=== PATIENT | male | born 1960 | race Caucasian/White ===

== ENCOUNTER 2018-07-28 14:08 | Outpatient (REF) | payer BC, SELFPAY | END 2018-07-28 14:28 | LOC: NCHCN 14:08 | PROVIDERS: PCP Nurse Practitioner Family; Visit Provider Nurse Practitioner Family | DX: N52.9 Male erectile dysfunction, unspecified (principal) | CPT/HCPCS: 84153 ==

== ENCOUNTER 2018-08-22 14:14 | Outpatient (REF) | payer BC, SELFPAY ==
[2018-08-22 14:55] LABS: Anion Gap 10.6 mmol/L (3-11); BUN 11 mg/dL (7-18); CO2 26.4 mmol/L (21.0-32.0); CREATININE 0.93 mg/dL (0.70-1.30); Calcium 8.7 mg/dL (8.5-10.1); Chloride 104 mmol/L (98-107); Glucose 89 mg/dL (70-100); HDL Cholesterol 39 mg/dL (40-60); LDL CHOLESTEROL 84 mg/dL (<100); Potassium 4.5 mmol/L (3.5-5.1); Sodium 141 mmol/L (136-145)
== END 2018-08-22 14:34 ==
LOC: NCHCN 14:14
PROVIDERS: PCP Nurse Practitioner Family; Visit Provider Nurse Practitioner Family
DX: I10 Essential (primary) hypertension (principal); N52.9 Male erectile dysfunction, unspecified; G47.00 Insomnia, unspecified
CPT/HCPCS: 80048; 83721; 83718

== ENCOUNTER 2019-07-03 07:41 | Outpatient (CLI) | payer BC, SELFPAY ==
[2019-07-03 08:14] LABS: Abs Immature Grans 0.02 k/cumm (0.0-0.09); Absolute Basophil Count 0.05 k/cumm (0.0-0.2); Absolute Eosinophil Count 0.18 k/cumm (0.0-0.7); Absolute Lymphocyte Count 1.68 k/cumm (1.2-3.4); Absolute Monocyte Count 0.55 k/cumm (0.11-0.7); Absolute Neutrophil Count 3.36 k/cumm (1.2-6.7); Basophils % 0.9; Eosinophils % 3.1; HCT 42.4 % (40.0-50.0); HGB 14.4 g/dL (13.5-17.5); Immature Grans % 0.3; Lymphocytes % 28.8; Mean Corpuscular Hemoglobin 29.3 pg (27.0-33.0); Mean Corpuscular Volume 86.2 fL (80-95); Mean Platelet Volume 9.2 fL (8.0-11.0); Monocytes % 9.4; Neutrophils % 57.5; Platelet Count 298 x1000/uL (130-400); RBC 4.92 m/cumm (4.50-6.00); RBC Distribution Width 13.8 % (11.8-14.1); White Blood Cell Count 5.84 k/cumm (4.4-10.8)
[2019-07-03 09:06] LABS: ALT 30 U/L (16-63); AST 14 U/L (15-37); Albumin 3.6 g/dL (3.4-5.0); Alkaline Phosphatase 140 U/L (46-116); Anion Gap 9.8 mmol/L (3-11); BUN 25 mg/dL (7-18); Bilirubin, Total 0.4 mg/dL (0.2-1.0); CO2 25.2 mmol/L (21.0-32.0); CREATININE 0.89 mg/dL (0.70-1.30); Calcium 8.5 mg/dL (8.5-10.1); Chloride 104 mmol/L (98-107); Glucose 99 mg/dL (74-106); Potassium 4.7 mmol/L (3.5-5.1); Sodium 139 mmol/L (136-145); Total Protein 6.7 g/dL (6.4-8.2)
== END 2019-07-03 08:01 ==
LOC: LBO 08:04 → NCHCO 08:09
PROVIDERS: PCP Nurse Practitioner Family; Visit Provider Nurse Practitioner Family
DX: Z00.00 Encounter for general adult medical examination without abnormal findings (principal); I10 Essential (primary) hypertension
CPT/HCPCS: 36415; 80053; 85025

== ENCOUNTER 2020-07-15 22:46 | Outpatient (REF) | payer BC, SELFPAY ==
[2020-07-15 18:11] LABS: ALT 31 U/L (16-63); AST 16 U/L (15-37); Albumin 3.5 g/dL (3.4-5.0); Alkaline Phosphatase 139 U/L (46-116); BUN 11 mg/dL (7-18); Bilirubin, Total 0.3 mg/dL (0.2-1.0); CREATININE 1.01 mg/dL (0.70-1.30); Calcium 8.4 mg/dL (8.5-10.1); Calculated LDL 49 mg/dL (<100); Chloride 106 mmol/L (98-107); Cholesterol 114 mg/dL (<200); Glucose 95 mg/dL (74-106); HDL Cholesterol 32 mg/dL (40-60); Potassium 4.1 mmol/L (3.5-5.1); Sodium 140 mmol/L (136-145); Triglyceride 166 mg/dL (<150)
== END 2020-07-15 23:06 ==
LOC: NCHCN 22:46
PROVIDERS: PCP Nurse Practitioner Family; Visit Provider Nurse Practitioner Family
DX: I10 Essential (primary) hypertension (principal); Z13.220 Encounter for screening for lipoid disorders
CPT/HCPCS: 80053; 80061

== ENCOUNTER 2021-03-12 13:04 | Emergency (ER) | payer OTHER, SELFPAY ==
[2021-03-12 13:13] VITALS: BP 179/104; PULSE 79; RESP 18; TEMP 36.5; O2SAT 97
--- NOTE | 2021-03-12 13:30 | DI.RAD_ITS ---
Exam(s) XR KNEE RT 3V AP,LAT,XAVIER EXAM: XR KNEE RT 3V AP,LAT,XAVIER CLINICAL HISTORY: pain, injury. TECHNIQUE: 2D digital imaging was performed. COMPARISON: No exams were available for comparison FINDINGS: There is no evidence of fracture or obvious joint effusion. Nose obvious degenerative changes. No o sseous lesions. Calcified fabella noted. IMPRESSION: No significant radiograph findings. DATA REPOSITORY: RADIATION DOSE DELIVERED:
[2021-03-12] MEDS: Ibuprofen 600 MG TAB PO (13:45)
--- NOTE | 2021-03-12 14:32 | W.ED.GENAD ---
Discharge Plan Disposition Patient Disposition: HOME Condition: Stable Discharge Details Clinical Impression: Injury of knee, right, Right knee sprain Primary Care Provider: Courtney Holly ED Provider: Phillip Escobar Home Meds and New Rx's Prescriptions: Continued melatonin 3 MG tablet 1 - 2 tab PO HS RF: 0 esomeprazole magnesium [Nexium] 20 MG capsule,delayed release(DR/EC) 20 mg PO DAILY Qty: 60 RF: 4 hydroxyzine HCl 50 mg tablet 50 mg PO HS RF: 0 lisinopril 40 mg tablet 40 mg PO DAILY RF: 0 Discharge Instructions Additional Instructions: Use Osmany wrap and rest. Do not perform any activities that worsen knee pain. Please take ibuprofen over the counter. Take 600mg by mouth every 6 hours as needed for pain. Please follow-up with orthopedics if pain does not improve over the next couple days. Return to the [facility] for any worsening or new concerning symptoms. Referrals: [facility] [Provider Group] Courtney Holly [Primary Care Provider] - Discharge Data Discharge Date/Time-TO BE ENTERED AT DEPARTURE: 03/12/21 15:25 Medical Decision Making 60-year-old male here with right knee pain after axial load injury at work. X-ray of the right knee was reviewed and interpreted by radiology: No fracture or dislocation. Suspect meniscal injury versus knee sprain. Patient has normal range of motion of the knee with some discomfort. I recommended knee brace and patient declined and would prefer Osmany wrap. Recommended crutches and patient declined. HPI General Mode of arrival: ambulatory. Date/Time Provider Initiated Documentation: 03/12/21 13:32. Limitations to Documentation: no limitations. Information obtained by: patient. HPI Narrative: 60-year-old male presents with chief complaint of right knee pain. Patient notes today at work he was standing on a wheelchair lift and it broke and he dropped about a foot. He had a significant amount of weight on his right leg and developed pain in his knee. No associated numbness or tingling. Pain is located anterior knee. Related Data Home Medications Medication Instructions Recorded Confirmed melatonin 1 - 2 tab PO HS 06/04/15 03/12/21 esomeprazole magnesium [Nexium] 20 mg PO DAILY #60 tab-cap 09/04/15 03/12/21 hydroxyzine HCl 50 mg PO HS 03/12/21 03/12/21 lisinopril 40 mg PO DAILY 03/12/21 03/12/21 Allergies Allergy/AdvReac Type Severity Reaction Status Date / Time Penicillins Allergy Intermediate Swelling/Ed Unverified 03/12/21 13:19 chante General Stated Complaint: Orthopedic DINA: 4 Review of Systems Musculoskeletal Musculoskeletal: Reports as per HPI Neurologic Neurologic: Reports as per HPI [facility] [place] Medical History GERD (gastroesophageal reflux disease) Glucose intolerance (impaired glucose tolerance) Surgical History 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 Brother No problems noted. Grandfather Personal history of malignant neoplasm Grandmother No problems noted. Grandfather Personal history of malignant neoplasm Grandmother No problems noted. Social History Smoking/Tobacco Use Status: Former Tobacco Use Smoking risk assessment performed?: Yes Alcohol Intake: current Alcohol Intake frequency: a few times a week Drug use: Never Substance use type: does not use Do you feel safe at home: Yes Do you feel safe in your relationship?: Yes Exam Const General: cooperative and no acute distress Cardio Rate: regular rate and not tachycardic Rhythm: regular rhythm Skin General skin exam: no rashes or lesions noted Neuro General: patient alert, patient awake, patient oriented x3 and tone normal Extrem Right lower extremity: knee Details: tenderness (Anterior knee infrapatellar), normal ROM and other (Patellar tendon complex intact); no swelling, no crepitus, no deformity and no unusual warmth Course Vital Signs Vital signs: Vital Signs Temperature 36.5 C 03/12/21 13:13 Pulse 79 03/12/21 13:13 Respiratory Rate 18 03/12/21 13:13 Blood Pressure 179/104 H 03/12/21 13:13 Pulse Oximetry 97 03/12/21 13:13 Temperature 36.5 C 03/12/21 13:13 Temperature Source Temporal Artery Scan 03/12/21 13:13 Pulse 79 03/12/21 13:13 Respiratory Rate 18 03/12/21 13:13 Respiratory Effort Non-Labored 03/12/21 13:17 Blood Pressure 179/104 H 03/12/21 13:13 Blood Pressure Position Supine 03/12/21 13:13 Pulse Oximetry 97 03/12/21 13:13 Oxygen Delivery Method Room Air 03/12/21 13:13 Oxygen Flow Rate 0 03/12/21 13:13 Pain Level 8 03/12/21 13:45 Comment 03/12/21 13:13
== END 2021-03-12 15:25 | disposition home or self-care (01) ==
PROVIDERS: Emergency Provider Student in an Organized Health Care Education/Training Program; PCP Nurse Practitioner Family
DX: S83.8X1A Sprain of other specified parts of right knee, initial encounter (principal); X58.XXXA Exposure to other specified factors, initial encounter; Y99.0 Civilian activity done for income or pay
CPT/HCPCS: 73562; 99283; 99282

== ENCOUNTER 2021-08-06 18:58 | Outpatient (CLI) | payer BC, SELFPAY ==
[2021-08-06 14:27] LABS: HCT 42.2 % (40.0-50.0); HGB 13.6 g/dL (13.5-17.5); MCH 26.6 pg (27.0-33.0); MCHC 32.2 % (32.0-36.0); MCV 82.6 fL (80-95); MPV 10.5 fL (8.0-11.0); Platelet Count 300 10^3/uL (130-400); RBC 5.11 10^6/uL (4.36-5.78); RDW 15.3 % (11.8-14.1); RDW-SD 46.4 fL; WBC 16.36 10^3/uL (4.4-10.8)
[2021-08-06 14:39] LABS: ALT 38 U/L (16-63); AST 20 U/L (15-37); Albumin 4.1 g/dL (3.4-5.0); Alkaline Phosphatase 141 U/L (46-116); Anion Gap 10.6 mmol/L (3-11); BUN 18 mg/dL (7-18); Bilirubin, Total 0.4 mg/dL (0.2-1.0); CO2 24.4 mmol/L (21.0-32.0); CREATININE 1.2 mg/dL (0.70-1.30); Calcium 8.8 mg/dL (8.5-10.1); Calculated LDL 75 mg/dL (<100); Chloride 102 mmol/L (98-107); Cholesterol 155 mg/dL (<200); Glucose 98 mg/dL (74-106); HDL Cholesterol 48 mg/dL (40-60); Potassium 4.3 mmol/L (3.5-5.1); Sodium 137 mmol/L (136-145); Total Protein 7.4 g/dL (6.4-8.2); Triglyceride 163 mg/dL (<150)
[2021-08-06 15:13] LABS: Hemoglobin A1C 5.9 % (<5.7)
== END 2021-08-06 18:59 | disposition home or self-care (01) ==
LOC: NCHCN 19:01
PROVIDERS: Visit Provider Nurse Practitioner Family
DX: Z00.00 Encounter for general adult medical examination without abnormal findings (principal); I10 Essential (primary) hypertension; Z13.220 Encounter for screening for lipoid disorders
CPT/HCPCS: 80053; 80061; 85027; 83036

== ENCOUNTER 2021-08-06 19:29 | Outpatient (CLI) | payer BC, SELFPAY ==
--- NOTE | 2021-08-06 | DI.RAD_ITS ---
Exam(s) XR CHEST 2V PA LATERAL EXAM: XR CHEST 2V PA LATERAL CLINICAL HISTORY: WHEEZING R06.02 SOB R06.02. TECHNIQUE: 2D digital imaging was performed. COMPARISON: CR CHEST 2 VIEWS PA,LAT from 07/12/2014 FINDINGS: Heart size is normal. The mediastinum is not widened. There is infiltrate in the left lower lobe now evident. Right lung is clear. There are no pleural e ffusions. Moderate-sized hiatal hernia is noted. IMPRESSION: Left lung infiltrate. Predominately involves left lower lobe. Also lingular segment.No pleural effu sions. No obvious infiltrate in the right lung. DATA REPOSITORY: RADIATION DOSE DELIVERED:
== END 2021-08-06 19:49 ==
PROVIDERS: PCP Nurse Practitioner Family; Visit Provider Nurse Practitioner Family
DX: R06.02 Shortness of breath (principal); R06.2 Wheezing; R91.8 Other nonspecific abnormal finding of lung field
CPT/HCPCS: 71046

== ENCOUNTER 2022-08-20 14:51 | Outpatient (REF) | payer SELFPAY ==
[2022-08-20 19:23] LABS: HCT 45.8 % (40.0-50.0)
[2022-08-20 19:42] LABS: Anion Gap 7.9 mmol/L (3-11); BUN 17 mg/dL (7-18); CO2 27.1 mmol/L (21.0-32.0); Calcium 9.3 mg/dL (8.5-10.1); Chloride 103 mmol/L (98-107); Estimated GFR 85.63 (mL/min/1.73m2); Glucose 95 mg/dL (74-106); Potassium 4.4 mmol/L (3.5-5.1); Sodium 138 mmol/L (136-145)
== END 2022-08-20 14:52 | disposition home or self-care (01) ==
LOC: NCHCN 14:51
PROVIDERS: PCP Nurse Practitioner Family; Visit Provider Nurse Practitioner Family
DX: I10 Essential (primary) hypertension (principal); K21.00 Gastro-esophageal reflux disease with esophagitis, without bleeding; R73.03 Prediabetes; Z00.00 Encounter for general adult medical examination without abnormal findings
CPT/HCPCS: 80048; 85014; 85018

== ENCOUNTER 2023-08-26 13:30 | Outpatient (REF) | payer OTHER, SELFPAY ==
[2023-08-26 19:26] LABS: Abs Immature Grans 0.01 10^3/uL (0.0-0.06); Absolute Basophil Count 0.04 10^3/uL (0.0-0.2); Absolute Lymphocyte Count 1.09 10^3/uL (1.2-3.4); Absolute Monocyte Count 0.38 10^3/uL (0.1-0.8); Basophils % 0.9; Eosinophils % 2.3; HCT 42.4 % (40.0-50.0); HGB 14.1 g/dL (13.5-17.5); Immature Grans % 0.2; Lymphocytes % 25.6; MCH 29.7 pg (27.0-33.0); MCHC 33.3 % (32.0-36.0); MCV 89 fL (80-95); MPV 10.6 fL (8.0-11.0); Monocytes % 8.9; Neutrophils % 62.1; Platelet Count 247 10^3/uL (130-400); RBC 4.75 10^6/uL (4.36-5.78); RDW 14.3 % (11.8-14.1); RDW-SD 46.9 fL; WBC 4.26 10^3/uL (4.4-10.8)
[2023-08-26 19:28] LABS: Absolute Neutrophil Count 2.65 10^3/uL (1.2-6.7)
[2023-08-26 20:06] LABS: Hemoglobin A1C 5.8 % (<5.7)
[2023-08-26 20:40] LABS: ALT 39 U/L (16-63); AST 29 U/L (15-37); Albumin 3.7 g/dL (3.4-5.0); Alkaline Phosphatase 114 U/L (46-116); Anion Gap 9.3 mmol/L (3-11); BUN 12 mg/dL (7-18); Bilirubin, Total 0.5 mg/dL (0.2-1.0); CO2 26.7 mmol/L (21.0-32.0); Calcium 8.9 mg/dL (8.5-10.1); Calculated LDL 46 mg/dL (<100); Chloride 105 mmol/L (98-107); Cholesterol 160 mg/dL (<200); Glucose 131 mg/dL (74-106); HDL Cholesterol 45 mg/dL (40-60); Potassium 4.2 mmol/L (3.5-5.1); Sodium 141 mmol/L (136-145); Total Protein 6.9 g/dL (6.4-8.2); Triglyceride 346 mg/dL (<150)
[2023-08-29 10:27] LABS: PSA, Screening 3.3 ng/mL (<=4.5)
== END 2023-08-26 13:31 | disposition home or self-care (01) ==
LOC: NCHCN 13:30
PROVIDERS: PCP Nurse Practitioner Family; Visit Provider Nurse Practitioner Family
DX: I10 Essential (primary) hypertension (principal); R73.03 Prediabetes; E78.1 Pure hyperglyceridemia; F52.21 Male erectile disorder; Z12.5 Encounter for screening for malignant neoplasm of prostate
CPT/HCPCS: 80053; 80061; 84153; 83036; 85025

== ENCOUNTER 2024-09-21 15:21 | Outpatient (CLI) | payer OTHER, SELFPAY ==
[2024-09-21 14:19] LABS: Abs Immature Grans 0.03 10^3/uL (0.0-0.06); Absolute Basophil Count 0.07 10^3/uL (0.0-0.2); Absolute Eosinophil Count 0.08 10^3/uL (0.0-0.7); Absolute Lymphocyte Count 1.69 10^3/uL (1.2-3.4); Absolute Monocyte Count 0.72 10^3/uL (0.1-0.8); Eosinophils % 1.1 %; HCT 36.8 % (40.0-50.0); Immature Grans % 0.4 %; Lymphocytes % 23.5 %; MCHC 32.6 % (32.0-36.0); MCV 89 fL (80-95); MPV 9.3 fL (8.0-11.0); Platelet Count 277 10^3/uL (130-400); RBC 4.14 10^6/uL (4.36-5.78); RDW 13.5 % (11.8-14.1); WBC 7.19 10^3/uL (4.4-10.8)
[2024-09-21 14:32] LABS: Hemoglobin A1C 6.1 % (<5.7)
[2024-09-21 15:12] LABS: ALT 34 U/L (16-63); AST 22 U/L (15-37); Albumin 3.2 g/dL (3.4-5.0); Alkaline Phosphatase 127 U/L (46-116); Anion Gap 8.8 mmol/L (3-11); BUN 10 mg/dL (7-18); Bilirubin, Total 0.3 mg/dL (0.2-1.0); CO2 26.2 mmol/L (21.0-32.0); CREATININE 1.2 mg/dL (0.70-1.30); Calcium 8.3 mg/dL (8.5-10.1); Calculated LDL 44 mg/dL (<100); Chloride 108 mmol/L (98-107); Cholesterol 122 mg/dL (<200); Estimated GFR 67.95 (mL/min/1.73m2); Glucose 92 mg/dL (74-106); HDL Cholesterol 38 mg/dL (>or=40); Potassium 3.4 mmol/L (3.5-5.1); Sodium 143 mmol/L (136-145); Total Protein 6.6 g/dL (6.4-8.2); Triglyceride 201 mg/dL (<150)
[2024-09-24 12:02] LABS: Free PSA/PSA Ratio 0.08 ratio
== END 2024-09-21 15:22 | disposition home or self-care (01) ==
LOC: LBO 15:21
PROVIDERS: PCP Nurse Practitioner Family; Visit Provider Nurse Practitioner Family
DX: R73.03 Prediabetes (principal); I10 Essential (primary) hypertension; Z13.220 Encounter for screening for lipoid disorders; Z80.42 Family history of malignant neoplasm of prostate; J06.9 Acute upper respiratory infection, unspecified
CPT/HCPCS: 36415; 80053; 80061; 83036; 84154; 85025

== ENCOUNTER 2024-11-29 16:53 | Outpatient (CLI) | payer OTHER, SELFPAY ==
--- NOTE | 2024-11-29 | DI.RAD_ITS ---
Exam(s) XR CHEST 2V PA LATERAL EXAM: XR CHEST 2V PA LATERAL CLINICAL HISTORY: R05.9 Cough,unspecified. TECHNIQUE: 2D digital imaging was performed. COMPARISON: CR XR CHEST 2V PA LATERAL from 08/06/[address] CHEST LUNG CANCER SCREEN from 10/03/2023 FINDINGS: 2 views: Moderate size retrocardiac hiatal hernia is noted. Heart size is normal. The upper mediastinum is not widened. Right lung is clear. There is some scarring in the left lower lobe. This appears similar to chest x -ray of 08/06/2021. However, the other infiltrate which was previously present in the left lung is n o longer seen. There are no pleural effusions. IMPRESSION: No acute pulmonary findings.Some scarring in left lower lobe is noted. Moderate size retrocardiac hiatal hernia is again noted. DATA REPOSITORY: RADIATION DOSE DELIVERED:
--- NOTE | 2024-11-29 17:22 | DI.VRAD_ITS ---
PROCEDURE INFORMATION: Exam: XR Chest Exam date and time: 11/29/2024 4:51 PM Age: 64 years old Clinical indication: Other: Cough, unspecified TECHNIQUE: Imaging protocol: Radiologic exam of the chest. Views: 2 views. COMPARISON: CT CHEST LUNG CANCER SCREEN 10/03/2023 7:57 AM FINDINGS: Lungs: The lungs are hyperinflated, consistent with underlying small airways disease. There is mild perihilar interstitial prominence. There is mild peribronchial thickening There are mild perihilar streaky densities present. These findings are most consistent with mild bronchitis. No evidence of lobar pneumonia. The pulmonary vasculature is normal. Pleural spaces: There is no evidence of pneumothorax. There are no pleural effusions present. Heart/Mediastinum: There is a hiatal hernia present. The cardiac silhouette is within normal limits. The mediastinum is normal. Bones/joints: The spine, sternum, ribs, and pectoral girdles are normal. Soft tissues: There are no soft tissue masses or calcifications. IMPRESSION: 1. Findings most consistant with mild bronchitis. 2. No evidence of lobar pneumonia. 3. Hiatal hernia present. 4. The lungs appear hyperinflated findings consistent with small airways disease. Dictated and Authenticated by: Francois Holt MD. Orderin Heber Mustafa MD
== END 2024-11-29 17:13 ==
LOC: DI 16:54
PROVIDERS: PCP Nurse Practitioner Family; Visit Provider Physician Assistant Medical
DX: R05.9 Cough, unspecified (principal)
CPT/HCPCS: 71046

== ENCOUNTER 2025-06-17 07:29 | Outpatient (CLI) | payer OTHER, SELFPAY ==
[2025-06-17 08:16] LABS: Anion Gap 11.2 mmol/L (3-11); BUN 18 mg/dL (9-23); CO2 25.8 mmol/L (20.0-31.0); Calcium 8.8 mg/dL (8.3-10.6); Chloride 106 mmol/L (98-107); Glucose 95 mg/dL (74-106); Potassium 3.5 mmol/L (3.5-5.1); Sodium 143 mmol/L (136-145)
== END 2025-06-17 07:30 | disposition home or self-care (01) ==
LOC: LBO 07:29
PROVIDERS: PCP Nurse Practitioner Family; Visit Provider Student in an Organized Health Care Education/Training Program
DX: I10 Essential (primary) hypertension (principal)
CPT/HCPCS: 36415; 80048